=== PATIENT | female | born 1975 | race Asian ===

== ENCOUNTER 2019-05-23 08:33 | Outpatient (CLI) | payer OTHER ==
[2019-05-23 09:09] LABS: BASOPHILS # (AUTO) 0.1 K/uL (0.0-0.2); BASOPHILS % (AUTO) 1.2 % (0.0-2.0); EOSINOPHILS # (AUTO) 0.6 K/uL (0.0-0.4); EOSINOPHILS % (AUTO) 7.8 % (0.0-4.0); HEMATOCRIT 40.1 % (36-48); HEMOGLOBIN 13.4 g/dL (12.0-16.0); LYMPHOCYTES # (AUTO) 2.1 K/uL (1.0-5.5); LYMPHOCYTES % (AUTO) 28.5 % (20.5-51.5); MEAN CORPUSCULAR HEMOGLOBIN 29 pg (27-31); MEAN CORPUSCULAR HGB CONC 34 % (32-36); MEAN CORPUSCULAR VOLUME 85 fL (79.0-98.0); MONOCYTES # (AUTO) 0.5 K/uL (0.0-1.0); NEUTROPHILS # (AUTO) 4.2 K/uL (1.8-7.7); NEUTROPHILS % (AUTO) 56.5 % (40.0-70.0); PLATELET COUNT (AUTO) 326 K/uL (130-430); RED CELL DISTRIBUTION WIDTH 13.9 % (9.0-15.0); WHITE BLOOD COUNT (AUTO) 7.5 K/uL (4.8-10.8)
[2019-05-23 09:30] LABS: C-REACTIVE PROTEIN QUANT < 0.2 mg/dL (0-0.5); CHOLESTEROL 185 mg/dL (<200); HDL CHOLESTEROL 42 mg/dL (>55); LDL CHOLESTEROL 125 mg/dL (<100); TRIGLYCERIDES 128 mg/dL (30-150)
[2019-05-23 09:38] LABS: ANION GAP 7 (5-15); CHLORIDE 107 mmol/L (98-107); GLUCOSE 92 mg/dL (70-99); POTASSIUM 4.1 mmol/L (3.5-5.1); SODIUM SERUM 139 mmol/L (136-145)
[2019-05-23 09:39] LABS: ALANINE AMINOTRANSFERASE 16 U/L (12-78); ALBUMIN 3.7 g/dL (3.4-4.8); ASPARTATE AMINOTRANSFERASE 18 U/L (10-37); CALCIUM 8.5 mg/dL (8.4-11.0); CREATININE 0.75 mg/dL (0.55-1.30); GFR AFRICAN AMERICAN 108 mL/min (>90); TOTAL BILIRUBIN 0.5 mg/dL (0.0-1.0); UREA NITROGEN, BLOOD 10 mg/dL (8-21); URIC ACID 4.7 mg/dL (2.4-7.0)
[2019-05-23 09:47] LABS: ERYTHROCYTE SEDIMENTATION RATE 18 MM/HR (0-20)
[2019-05-23 10:02] LABS: THYROID STIMULATING HORMONE 5.22 uIu/mL (0.36-3.74)
[2019-05-25 11:20] LABS: VIT D,1, 25-DIHYDROXY 59.6 pg/mL (19.9-79.3)
[2019-05-27 12:47] LABS: HEMOGLOBIN A1C 5.7 % (4.8-5.6)
== END 2019-05-23 20:03 | disposition home or self-care (01) ==
LOC: SLB 08:33
PROVIDERS: ATTEND Internal Medicine
DX: E04.2 Nontoxic multinodular goiter (principal)
CPT/HCPCS: 36415; 76536-TC; 80053; 80061; 82306; 82607; 83036; 84443-TC; 84550-TC; 85025; 85651-TC; 86140

== ENCOUNTER 2019-06-12 09:25 | Outpatient (CLI) | payer OTHER ==
[2019-06-12 10:49] LABS: FREE T4 (FREE THYROXINE) 0.9 ng/dl (0.8-1.5); THYROID STIMULATING HORMONE 5.05 uIu/mL (0.36-3.74)
[2019-06-13 08:08] LABS: TRIIODOTHYRONINE, FREE 3.3 pg/mL (2.0-4.4)
== END 2019-06-12 21:04 | disposition home or self-care (01) ==
LOC: SLB 09:25
PROVIDERS: ATTEND Internal Medicine
DX: E03.9 Hypothyroidism, unspecified (principal)
CPT/HCPCS: 36415; 84439; 84443-TC; 84481; 86376

== ENCOUNTER 2019-08-28 12:37 | Outpatient (CLI) | payer OTHER ==
[2019-08-28 15:10] LABS: FREE T4 (FREE THYROXINE) 1.1 ng/dl (0.8-1.5); THYROID STIMULATING HORMONE 3.13 uIu/mL (0.36-3.74)
== END 2019-08-28 19:31 | disposition home or self-care (01) ==
LOC: SLB 12:37
PROVIDERS: ATTEND Internal Medicine
DX: E03.9 Hypothyroidism, unspecified (principal); E55.9 Vitamin D deficiency, unspecified; E56.9 Vitamin deficiency, unspecified
CPT/HCPCS: 36415; 82306; 82607; 84439; 84443-TC

== ENCOUNTER 2020-10-24 08:32 | Outpatient (CLI) | payer OTHER ==
[2020-10-24 09:40] LABS: BASOPHILS # (AUTO) 0.1 K/uL (0.0-0.2); BASOPHILS % (AUTO) 1.2 % (0.0-2.0); EOSINOPHILS # (AUTO) 0.4 K/uL (0.0-0.4); EOSINOPHILS % (AUTO) 5.7 % (0.0-4.0); HEMATOCRIT 41.2 % (36-48); HEMOGLOBIN 13.4 g/dL (12.0-16.0); LYMPHOCYTES # (AUTO) 2.4 K/uL (1.0-5.5); LYMPHOCYTES % (AUTO) 31.6 % (20.5-51.5); MEAN CORPUSCULAR HEMOGLOBIN 27 pg (27-31); MEAN CORPUSCULAR HGB CONC 33 % (32-36); MEAN CORPUSCULAR VOLUME 84 fL (79.0-98.0); MONOCYTES # (AUTO) 0.4 K/uL (0.0-1.0); MONOCYTES % (AUTO) 4.8 % (1.7-9.3); NEUTROPHILS # (AUTO) 4.3 K/uL (1.8-7.7); NEUTROPHILS % (AUTO) 56.7 % (40.0-70.0); PLATELET COUNT (AUTO) 382 K/uL (130-430); RED BLOOD CELL COUNT(AUTO) 4.94 MIL/uL (4.2-6.2); RED CELL DISTRIBUTION WIDTH 14.2 % (9.0-15.0); WHITE BLOOD COUNT (AUTO) 7.6 K/uL (4.8-10.8)
[2020-10-24 10:10] LABS: CALCIUM 8.9 mg/dL (8.4-11.0); CREATININE 0.76 mg/dL (0.55-1.30); POTASSIUM 4.1 mmol/L (3.5-5.1); THYROID STIMULATING HORMONE 3.13 uIu/mL (0.36-3.74); TOTAL BILIRUBIN 0.3 mg/dL (0.0-1.0)
[2020-10-24 11:09] LABS: BILIRUBIN,URINE NEGATIVE (NEGATIVE); CLARITY/URINE CLEAR (CLEAR); GLUCOSE,URINE NEGATIVE (NEGATIVE); KETONES,URINE NEGATIVE (NEGATIVE); LEUKOCYTE ESTERASE ,URINE TRACE (NEGATIVE); NITRITE, URINE NEGATIVE (NEGATIVE); PROTEIN URINE NEGATIVE (NEGATIVE); UROBILINOGEN,URINE 0.2 (0.2-1.0)
[2020-10-24 11:16] LABS: BLOOD, URINE TRACE (NEGATIVE); COLOR,URINE STRAW (YELLOW)
[2020-10-24 11:18] LABS: BACTERIA,URINE None Seen /HPF (None Seen); RBC,URINE 0-3 /HPF (0-3); TRICHOMONAS,URINE None Seen /HPF (None Seen); YEAST,URINE None Seen /HPF (None Seen)
== END 2020-10-24 19:59 | disposition home or self-care (01) ==
LOC: SLB 08:32
PROVIDERS: ATTEND Internal Medicine
DX: E03.9 Hypothyroidism, unspecified (principal); Z00.00 Encounter for general adult medical examination without abnormal findings
CPT/HCPCS: 36415; 80053; 80061; 81000-TC; 82306; 82607; 83036; 84443-TC; 85025; 86376

== ENCOUNTER 2020-11-29 09:36 | Outpatient (CLI) | payer OTHER ==
[2020-11-29 10:17] LABS: BILIRUBIN,URINE NEGATIVE (NEGATIVE); CLARITY/URINE CLEAR (CLEAR); COLOR,URINE YELLOW (YELLOW); GLUCOSE,URINE NEGATIVE (NEGATIVE); KETONES,URINE NEGATIVE (NEGATIVE); LEUKOCYTE ESTERASE ,URINE TRACE (NEGATIVE); NITRITE, URINE NEGATIVE (NEGATIVE); PROTEIN URINE NEGATIVE (NEGATIVE); UROBILINOGEN,URINE 0.2 (0.2-1.0)
[2020-11-29 10:41] LABS: BLOOD, URINE TRACE (NEGATIVE)
[2020-11-29 11:00] LABS: BACTERIA,URINE RARE /HPF (None Seen)
== END 2020-11-29 20:26 | disposition home or self-care (01) ==
LOC: SLB 09:36
PROVIDERS: ATTEND Internal Medicine
DX: N39.0 Urinary tract infection, site not specified (principal)
CPT/HCPCS: 81000-TC; 87086

== ENCOUNTER 2021-03-24 08:29 | Outpatient (CLI) | payer OTHER ==
[2021-03-24 09:28] LABS: THYROID STIMULATING HORMONE 2.95 uIu/mL (0.36-3.74)
[2021-03-24 11:19] LABS: BILIRUBIN,URINE NEGATIVE (NEGATIVE); CLARITY/URINE CLEAR (CLEAR); COLOR,URINE YELLOW (YELLOW); GLUCOSE,URINE NEGATIVE (NEGATIVE); KETONES,URINE NEGATIVE (NEGATIVE); LEUKOCYTE ESTERASE ,URINE 1+ (NEGATIVE); NITRITE, URINE NEGATIVE (NEGATIVE); PROTEIN URINE NEGATIVE (NEGATIVE); UROBILINOGEN,URINE 0.2 (0.2-1.0)
[2021-03-24 11:36] LABS: BLOOD, URINE TRACE (NEGATIVE)
[2021-03-24 11:50] LABS: BACTERIA,URINE RARE /HPF (None Seen)
[2021-03-25 07:06] LABS: THYROID PEROXIDASE (TPO) AB 12 IU/mL (0-34)
== END 2021-03-24 21:08 | disposition home or self-care (01) ==
LOC: SLB 08:29
PROVIDERS: ATTEND Internal Medicine
DX: Z12.31 Encounter for screening mammogram for malignant neoplasm of breast (principal); R31.9 Hematuria, unspecified; N39.0 Urinary tract infection, site not specified; E03.9 Hypothyroidism, unspecified; E55.9 Vitamin D deficiency, unspecified; E56.9 Vitamin deficiency, unspecified
CPT/HCPCS: 36415; 76770; 77067; 81000; 82306; 82607; 84439; 84443; 86376; 87086

== ENCOUNTER 2021-11-24 09:13 | Outpatient (CLI) | payer OTHER ==
[2021-11-24 10:58] LABS: BASOPHILS # (AUTO) 0.1 K/uL (0.0-0.2); BASOPHILS % (AUTO) 1.3 % (0.0-2.0); EOSINOPHILS # (AUTO) 0.5 K/uL (0.0-0.4); EOSINOPHILS % (AUTO) 6.3 % (0.0-4.0); HEMATOCRIT 40.4 % (36-48); HEMOGLOBIN 13.6 g/dL (12.0-16.0); LYMPHOCYTES # (AUTO) 2.5 K/uL (1.0-5.5); LYMPHOCYTES % (AUTO) 31.5 % (20.5-51.5); MEAN CORPUSCULAR HEMOGLOBIN 28 pg (27-31); MEAN CORPUSCULAR HGB CONC 34 % (32-36); MEAN CORPUSCULAR VOLUME 83 fL (79.0-98.0); MONOCYTES # (AUTO) 0.5 K/uL (0.0-1.0); MONOCYTES % (AUTO) 6.3 % (1.7-9.3); NEUTROPHILS # (AUTO) 4.4 K/uL (1.8-7.7); NEUTROPHILS % (AUTO) 54.6 % (40.0-70.0); PLATELET COUNT (AUTO) 324 K/uL (130-430); RED BLOOD CELL COUNT(AUTO) 4.85 MIL/uL (4.2-6.2); RED CELL DISTRIBUTION WIDTH 13.3 % (9.0-15.0)
[2021-11-24 11:17] LABS: BILIRUBIN,URINE NEGATIVE (NEGATIVE); BLOOD, URINE 1+ (NEGATIVE); COLOR,URINE YELLOW (YELLOW); GLUCOSE,URINE NEGATIVE (NEGATIVE); KETONES,URINE NEGATIVE (NEGATIVE); LEUKOCYTE ESTERASE ,URINE 3+ (NEGATIVE); NITRITE, URINE NEGATIVE (NEGATIVE); PROTEIN URINE NEGATIVE (NEGATIVE); UROBILINOGEN,URINE 0.2 (0.2-1.0)
[2021-11-24 11:20] LABS: ALANINE AMINOTRANSFERASE 20 U/L (12-78); ALBUMIN 3.8 g/dL (3.4-4.8); ANION GAP 9 (5-15); ASPARTATE AMINOTRANSFERASE 15 U/L (10-37); CALCIUM 8.9 mg/dL (8.4-11.0); CHLORIDE 103 mmol/L (98-107); CHOLESTEROL 215 mg/dL (<200); CREATININE 0.67 mg/dL (0.55-1.30); GLUCOSE 95 mg/dL (70-99); HDL CHOLESTEROL 56 mg/dL (>55); LDL CHOLESTEROL 127 mg/dL (<100); POTASSIUM 4.4 mmol/L (3.5-5.1); SODIUM SERUM 138 mmol/L (136-145); TOTAL BILIRUBIN 0.4 mg/dL (0.0-1.0); TRIGLYCERIDES 135 mg/dL (30-150); UREA NITROGEN, BLOOD 9 mg/dL (8-21)
[2021-11-24 11:21] LABS: CLARITY/URINE HAZY (CLEAR)
[2021-11-24 11:24] LABS: GFR AFRICAN AMERICAN 122 mL/min (>90)
[2021-11-24 11:44] LABS: C-REACTIVE PROTEIN QUANT < 0.2 mg/dL (0-0.5)
[2021-11-24 11:53] LABS: BACTERIA,URINE FEW /HPF (None Seen); WBC,URINE 20-50 /HPF (0-3)
[2021-11-24 11:54] LABS: MUCUS,URINE 1+ /LPF (None Seen)
[2021-11-24 13:26] LABS: ERYTHROCYTE SEDIMENTATION RATE 14 MM/HR (0-20)
[2021-11-25 07:07] LABS: FOLLICLE STIMULATION HORMONE 3.1 mIU/mL (.); LUETENIZING HORMONE 2.7 mIU/mL (.); PROGESTERONE 14.2 ng/mL (.)
== END 2021-11-24 19:09 | disposition home or self-care (01) ==
LOC: SLB 09:13
PROVIDERS: ATTEND Internal Medicine
DX: E23.0 Hypopituitarism (principal); E03.9 Hypothyroidism, unspecified; E78.5 Hyperlipidemia, unspecified; E56.9 Vitamin deficiency, unspecified
CPT/HCPCS: 36415; 80053; 80061; 81000; 82306; 82607; 82670; 83001; 83002; 84144; 84146; 84403; 84443; 85025; 85651-TC; 86140

== ENCOUNTER 2022-04-11 14:37 | Outpatient (CLI) | payer OTHER | END 2022-04-11 20:00 | disposition home or self-care (01) | LOC: SLB 14:37 | DX: Z13.9 Encounter for screening, unspecified (principal) | CPT/HCPCS: 36415; 86480; 86706; 86787 ==

== ENCOUNTER 2022-07-20 09:18 | Outpatient (CLI) | payer OTHER ==
[2022-07-20 09:47] LABS: BASOPHILS # (AUTO) 0.1 K/uL (0.0-0.2); BASOPHILS % (AUTO) 1.1 % (0.0-2.0); EOSINOPHILS # (AUTO) 0.6 K/uL (0.0-0.4); EOSINOPHILS % (AUTO) 7.6 % (0.0-4.0); HEMATOCRIT 38.9 % (36-48); HEMOGLOBIN 13.1 g/dL (12.0-16.0); LYMPHOCYTES # (AUTO) 2.5 K/uL (1.0-5.5); MEAN CORPUSCULAR HEMOGLOBIN 28 pg (27-31); MEAN CORPUSCULAR HGB CONC 34 % (32-36); MEAN CORPUSCULAR VOLUME 82 fL (79.0-98.0); MONOCYTES # (AUTO) 0.4 K/uL (0.0-1.0); MONOCYTES % (AUTO) 5.7 % (1.7-9.3); NEUTROPHILS # (AUTO) 4.1 K/uL (1.8-7.7); NEUTROPHILS % (AUTO) 53.6 % (40.0-70.0); PLATELET COUNT (AUTO) 347 K/uL (130-430); RED BLOOD CELL COUNT(AUTO) 4.76 MIL/uL (4.2-6.2); RED CELL DISTRIBUTION WIDTH 13.9 % (9.0-15.0); WHITE BLOOD COUNT (AUTO) 7.7 K/uL (4.8-10.8)
[2022-07-20 10:18] LABS: ALBUMIN 3.8 g/dL (3.4-4.8); CALCIUM 9.7 mg/dL (8.4-11.0); CREATININE 0.75 mg/dL (0.55-1.30); FREE T4 (FREE THYROXINE) 1.2 ng/dl (0.8-1.5); THYROID STIMULATING HORMONE 3.2 uIu/mL (0.36-3.74); TOTAL BILIRUBIN 0.5 mg/dL (0.0-1.0)
== END 2022-07-20 20:42 | disposition home or self-care (01) ==
LOC: SLB 09:18
PROVIDERS: ATTEND Internal Medicine
DX: E03.9 Hypothyroidism, unspecified (principal)
CPT/HCPCS: 36415; 80053; 84439; 84443; 85025; 86376

== ENCOUNTER → 2022-10-29 | Outpatient (CLI) | payer OTHER ==
[2022-10-29 10:46] LABS: BASOPHILS # (AUTO) 0.1 K/uL (0.0-0.2); BASOPHILS % (AUTO) 1.2 % (0.0-2.0); EOSINOPHILS # (AUTO) 0.5 K/uL (0.0-0.4); EOSINOPHILS % (AUTO) 7.3 % (0.0-4.0); HEMATOCRIT 40.1 % (36-48); HEMOGLOBIN 13.3 g/dL (12.0-16.0); LYMPHOCYTES # (AUTO) 2.2 K/uL (1.0-5.5); LYMPHOCYTES % (AUTO) 31.8 % (20.5-51.5); MEAN CORPUSCULAR HEMOGLOBIN 28 pg (27-31); MEAN CORPUSCULAR HGB CONC 33 % (32-36); MEAN CORPUSCULAR VOLUME 84 fL (79.0-98.0); MONOCYTES # (AUTO) 0.3 K/uL (0.0-1.0); MONOCYTES % (AUTO) 4.8 % (1.7-9.3); NEUTROPHILS # (AUTO) 3.9 K/uL (1.8-7.7); NEUTROPHILS % (AUTO) 54.9 % (40.0-70.0); PLATELET COUNT (AUTO) 357 K/uL (130-430); RED BLOOD CELL COUNT(AUTO) 4.79 MIL/uL (4.2-6.2); RED CELL DISTRIBUTION WIDTH 13.7 % (9.0-15.0)
[2022-10-29 11:09] LABS: CALCIUM 9.4 mg/dL (8.4-11.0); CREATININE 0.76 mg/dL (0.55-1.30); FREE T4 (FREE THYROXINE) 1.3 ng/dL (0.6-1.6); THYROID STIMULATING HORMONE 5.87 uIu/mL (0.34-4.82); TOTAL BILIRUBIN 0.4 mg/dL (0.0-1.0)
== END | disposition home or self-care (01) ==
LOC: SLB 09:18
PROVIDERS: ATTEND Internal Medicine
DX: E03.9 Hypothyroidism, unspecified (principal); E55.9 Vitamin D deficiency, unspecified; E78.5 Hyperlipidemia, unspecified; R73.9 Hyperglycemia, unspecified; E56.9 Vitamin deficiency, unspecified
CPT/HCPCS: 36415; 76536-TC; 80053; 80061; 82306; 82607; 83037; 84439; 84443; 85025; 86376

== ENCOUNTER 2023-01-26 11:40 | Outpatient (CLI) | payer OTHER ==
[2023-01-26 12:21] LABS: FREE T4 (FREE THYROXINE) 1.2 ng/dL (0.6-1.6); THYROID STIMULATING HORMONE 1.29 uIu/mL (0.34-4.82)
[2023-01-27 11:07] LABS: CORTISOL (SERUM) 9.4 ug/dL (6.2-19.4)
== END 2023-01-26 20:10 | disposition home or self-care (01) ==
LOC: SLB 11:40
PROVIDERS: ATTEND Internal Medicine
DX: E06.3 Autoimmune thyroiditis (principal); E03.9 Hypothyroidism, unspecified
CPT/HCPCS: 36415; 82533; 84439; 84443; 86376

== ENCOUNTER 2023-05-19 09:53 | Outpatient (CLI) | payer OTHER ==
[2023-05-19 10:23] LABS: BASOPHILS # (AUTO) 0.1 K/uL (0.0-0.2); EOSINOPHILS # (AUTO) 0.5 K/uL (0.0-0.4); EOSINOPHILS % (AUTO) 6.2 % (0.0-4.0); HEMATOCRIT 40.3 % (36-48); HEMOGLOBIN 13.3 g/dL (12.0-16.0); LYMPHOCYTES # (AUTO) 2.4 K/uL (1.0-5.5); LYMPHOCYTES % (AUTO) 29.8 % (20.5-51.5); MEAN CORPUSCULAR HEMOGLOBIN 28 pg (27-31); MEAN CORPUSCULAR HGB CONC 33 % (32-36); MEAN CORPUSCULAR VOLUME 84 fL (79.0-98.0); MONOCYTES # (AUTO) 0.4 K/uL (0.0-1.0); MONOCYTES % (AUTO) 5.1 % (1.7-9.3); NEUTROPHILS # (AUTO) 4.7 K/uL (1.8-7.7); NEUTROPHILS % (AUTO) 57.9 % (40.0-70.0); PLATELET COUNT (AUTO) 343 K/uL (130-430); RED BLOOD CELL COUNT(AUTO) 4.79 MIL/uL (4.2-6.2); RED CELL DISTRIBUTION WIDTH 13.5 % (9.0-15.0); WHITE BLOOD COUNT (AUTO) 8.1 K/uL (4.8-10.8)
[2023-05-19 10:44] LABS: ALBUMIN 3.8 g/dL (3.4-4.8); CALCIUM 8.1 mg/dL (8.4-11.0); CREATININE 0.59 mg/dL (0.55-1.30); FREE T4 (FREE THYROXINE) 1.3 ng/dL (0.6-1.6); POTASSIUM 4.2 mmol/L (3.5-5.1); THYROID STIMULATING HORMONE 0.72 uIu/mL (0.34-4.82); TOTAL BILIRUBIN 0.4 mg/dL (0.0-1.0); TOTAL PROTEIN, SERUM 7.5 g/dL (6.4-8.3)
[2023-05-19 11:40] LABS: HEMOGLOBIN A1C 5.67 % (<5.7)
== END 2023-05-19 20:15 | disposition home or self-care (01) ==
LOC: SLB 09:53
PROVIDERS: ATTEND Internal Medicine
DX: E03.9 Hypothyroidism, unspecified (principal); E55.9 Vitamin D deficiency, unspecified; E56.9 Vitamin deficiency, unspecified; E78.5 Hyperlipidemia, unspecified
CPT/HCPCS: 36415; 80053; 80061; 82306; 82607; 83037; 84439; 84443; 85025

== ENCOUNTER 2023-11-26 09:14 | Outpatient (CLI) | payer OTHER ==
[2023-11-26 10:35] LABS: BILIRUBIN,URINE NEGATIVE (NEGATIVE); CLARITY/URINE CLEAR (CLEAR); COLOR,URINE YELLOW (YELLOW); GLUCOSE,URINE NEGATIVE (NEGATIVE); KETONES,URINE NEGATIVE (NEGATIVE); LEUKOCYTE ESTERASE ,URINE NEGATIVE (NEGATIVE); NITRITE, URINE NEGATIVE (NEGATIVE); PROTEIN URINE NEGATIVE (NEGATIVE); UROBILINOGEN,URINE 0.2 (0.2-1.0)
[2023-11-26 10:43] LABS: BASOPHILS # (AUTO) 0.1 K/uL (0.0-0.2); BASOPHILS % (AUTO) 1.2 % (0.0-2.0); EOSINOPHILS # (AUTO) 0.5 K/uL (0.0-0.4); EOSINOPHILS % (AUTO) 5.9 % (0.0-4.0); HEMATOCRIT 39.2 % (36-48); HEMOGLOBIN 13.2 g/dL (12.0-16.0); LYMPHOCYTES # (AUTO) 2.9 K/uL (1.0-5.5); LYMPHOCYTES % (AUTO) 33.7 % (20.5-51.5); MEAN CORPUSCULAR HEMOGLOBIN 28 pg (27-31); MEAN CORPUSCULAR HGB CONC 34 % (32-36); MEAN CORPUSCULAR VOLUME 83 fL (79.0-98.0); MONOCYTES # (AUTO) 0.6 K/uL (0.0-1.0); MONOCYTES % (AUTO) 7.1 % (1.7-9.3); NEUTROPHILS # (AUTO) 4.5 K/uL (1.8-7.7); NEUTROPHILS % (AUTO) 52.1 % (40.0-70.0); PLATELET COUNT (AUTO) 389 K/uL (130-430); RED BLOOD CELL COUNT(AUTO) 4.71 MIL/uL (4.2-6.2); RED CELL DISTRIBUTION WIDTH 13.9 % (9.0-15.0); WHITE BLOOD COUNT (AUTO) 8.7 K/uL (4.8-10.8)
[2023-11-26 10:50] LABS: BLOOD, URINE TRACE (NEGATIVE)
[2023-11-26 11:10] LABS: HEMOGLOBIN A1C 5.49 % (<5.7)
[2023-11-26 11:25] LABS: BACTERIA,URINE None Seen /HPF (None Seen); RBC,URINE 0-3 /HPF (0-3); WBC,URINE NONE SEEN /HPF (0-3)
[2023-11-26 11:33] LABS: ALBUMIN 3.7 g/dL (3.4-4.8); CALCIUM 9.3 mg/dL (8.4-11.0); CREATININE 0.74 mg/dL (0.55-1.30); FREE T4 (FREE THYROXINE) 1.4 ng/dL (0.6-1.6); POTASSIUM 4.7 mmol/L (3.5-5.1); THYROID STIMULATING HORMONE 0.56 uIu/mL (0.34-4.82); TOTAL BILIRUBIN 0.3 mg/dL (0.0-1.0); TOTAL PROTEIN, SERUM 7.7 g/dL (6.4-8.3)
== END 2023-11-26 18:04 | disposition home or self-care (01) ==
LOC: SLB 09:14
PROVIDERS: ATTEND Internal Medicine
DX: E03.9 Hypothyroidism, unspecified (principal); R73.9 Hyperglycemia, unspecified; E56.9 Vitamin deficiency, unspecified; E55.9 Vitamin D deficiency, unspecified
CPT/HCPCS: 36415; 80053; 80061; 81000; 81001; 81015; 83037; 84439; 84443; 85025